=== PATIENT | male | born 1960 | race Caucasian/White ===

== ENCOUNTER → 2016-04-22 | Outpatient (CLI) | payer SELFPAY | END | disposition disaster alternative care site (69) | LOC: GRAD 10:17 | DX: K76.89 Other specified diseases of liver (principal) | CPT/HCPCS: A9577 ==

== ENCOUNTER → 2016-08-27 | Outpatient (CLI) | payer SELFPAY | END | disposition disaster alternative care site (69) | LOC: GRAD 06-25 09:00 | DX: R93.8 Abnormal findings on diagnostic imaging of other specified body structures (principal); J98.09 Other diseases of bronchus, not elsewhere classified ==